=== PATIENT | female | born 1940 | race Caucasian/White ===

== ENCOUNTER 2018-04-18 05:16 | Inpatient (IN) ==
[2018-04-18] MEDS ORDERED: Dexamethasone Inj 20 MG/5 ML Vial IV.PUSH PRN (05:57)
[2018-04-18] MEDS ORDERED: ceFAZolin 2 GM Premix Inj 2 GM/100 ML BAG IV.SIG PRN (05:59)
[2018-04-18] MEDS ORDERED: Chlorhexidine Gluconate 2% 1 Pack (2 Cloths) TOPICAL SCH (06:00)
[2018-04-18] MEDS ORDERED: Sodium Chlor 0.9% Inj 500 ML IV.SIG SCH (06:00)
[2018-04-18] MEDS ORDERED: Metoprolol Tartrate 25 MG Tablet PO SCH (06:00)
[2018-04-18] MEDS ORDERED: Tranexamic Acid Inj 790 MG in Sodium Chlor 0.9% Inj 100 ML IV.SIG SCH ×2 (06:00→10:00)
[2018-04-18] MEDS ORDERED: Sodium Chlor 0.9% Inj 40 ML, Bupivacaine Liposo PF 1.3% Inj 20 ML P-ARTICULR SCH ×2 (06:15)
[2018-04-18] MEDS ORDERED: Chlorhexidine 4% Topical 120 APPLIC/120 ML Bottle TOPICAL SCH (06:15)
[2018-04-18] MEDS ORDERED: fentaNYL Citrate Inj 100 MCG/2 ML Ampul ONE ×2 (06:19→08:22)
[2018-04-18] MEDS ORDERED: Famotidine PF Inj 20 MG/2 ML Vial ONE (06:20)
[2018-04-18] MEDS ORDERED: fentaNYL Citrate Inj 250 MCG/5 ML Ampul ONE (06:20)
[2018-04-18] MEDS ORDERED: Ketamine Inj 50 MG/5 ML Syringe IV.PUSH ONE (06:41)
[2018-04-18] MEDS ORDERED: Vancomycin Inj 1,000 MG in Sodium Chlor 0.9% Inj 250 ML IV.SIG SCH (07:00)
[2018-04-18] MEDS ORDERED: Post-op Orders (for Pharmacy) OTHER STA (08:30)
[2018-04-18] MEDS ORDERED: Bisacodyl 10 MG Supp RECTAL PRN (08:30)
[2018-04-18] MEDS ORDERED: Aluminum/Magnesium/Simethacone Susp 30 ML UDC PO PRN (08:30)
--- NOTE | 2018-04-18 08:33 | P.OP ---
- Preoperative Diagnosis (1) Osteoarthritis of left hip - Postoperative Diagnosis (1) Osteoarthritis of left hip Date of procedure: 04/18/18 Procedure: Left total hip arthroplasty Anesthesia: GETA Surgeon: Fernando De La Paz MD [employer] Fabricator: TRUMAN Uribe The surgical procedure was assisted by my Advanced Registered Nurse Practitioner. My LAB ANIMAL TECHNOLOGIST presence was necessary throughout this case for the manipulation and positioning of the surgical extremity. My LAB ANIMAL TECHNOLOGIST was assisting me throughout the duration of this procedure. The skill set of an Advance Registered Nurse Practitioner was medically necessary to complete this procedure. During the surgical case, the rn surgical was working at the back table and the Advance Registered Nurse Practitioner was directly assisting me. Operation and Findings: IMPLANT DESCRIPTION: 1. [place] Gription Cup, acetabular size 50. 2. [place] AltrX polyethylene, neutral. 4. [place] femoral stem size 12, no collar, standard offset. 5. Femoral head/neck metal, 32, +1. ESTIMATED BLOOD LOSS: 600 cc. JUSTIFICATION FOR PROCEDURE: The patient has end-stage osteoarthritis to the hip. There is an attached conservative measures pathway form in the chart that describes the nonoperative measures that were undertaken prior to consideration of surgical management. The patient understood the risks and benefits of surgical management. See my office notes for further details. PROCEDURE: The patient was brought back to the operative theatre. Adequate anesthesia was obtained. The patient received intravenous vancomycin and Ancef. The patient was carefully placed on the operative table. The lower extremity was prepped and draped in the usual sterile fashion. Fluoroscopic images were obtained. We made a standard anterior incision over the hip. We dissected through the TFL fascia, exposing the anterior capsule. Arthrotomy was performed in a T-shaped fashion. The capsule was tagged with a #2 FiberWire. End-stage arthritis was identified. Osteotomy was performed through the femoral neck exposing the acetabulum. Remnants of the labrum were resected and osteophytes were removed. We sequentially reamed the acetabulum. We trialed the hip and placed the final cup into position. This was done under fluoroscopic guidance to obtain the appropriate inclination and anteversion. A manhole cover was placed into the acetabular component. We then placed the final polyethylene into position and confirmed that it was well seated. Capsular attachments on the calcar and the inner aspect of the greater trochanter were resected. On the proximal aspect of the femur we used a rongeur , box osteotome, canal finder, sequential broaches and lateralizing rasp. We calcar planed the proximal femur. Then thoroughly irrigated the wound. We trialed the hip with the appropriate size stem. We placed the final stem in to position and trialed again. The hip was stable while it was externally rotated 70 degrees when the leg was lowered to the floor. The final head was applied, and final fluoroscopic images were obtained. The wound was thoroughly irrigated again. Interarticular injection of liposomal bupivacaine was given. The capsule was closed with #2 FiberWire and #1 Vicryl. The deep fascia was closed with a #2 Stratafix, followed by 2-0 Vicryl in the skin and Dermabond dressing. Postop plan is to weight-bear as tolerated. DVT prophylaxis will be performed with SCDs, EDENILSON mcelroy, early mobilization, and Lovenox followed by aspirin.
[2018-04-18] MEDS ORDERED: Morphine Sulfate Inj 2 MG/ML Vial IV.PUSH PRN (09:00)
[2018-04-18] MEDS ORDERED: ALPRAZolam 0.25 MG Tablet PO PRN (09:00)
--- NOTE | 2018-04-18 09:08 | XR ---
EXAM DATE: 04/18/2018 8:39 AM EDT AGE/SEX: 77 years / Female INDICATIONS: Left total hip arthroplasty. CLINICAL DATA: This is the patient's initial encounter. Patient reports that signs and symptoms have been present for 1 day and indicates a pain score of Nonresponsive. MEDICAL/SURGICAL HISTORY: Non-responsive. Non-responsive. COMPARISON: No prior exams available for comparison. FINDINGS: 2 spot intraoperative fluoroscopic views of the left hip demonstrate a total hip arthroplasty. Femora l and acetabular components appear well seated. CONCLUSION: Left total hip arthroplasty. Electronically signed by: Ken Hawthorne MD 04/18/2018 9:07 AM EDT
[2018-04-18] MEDS ORDERED: Morphine Inj 4 MG/ML Vial ONE (09:09)
[2018-04-18] MEDS: Sod Chloride 0.9% Inj 1,000 ML IV.CONT SCH ×2 (09:12→20:51)
[2018-04-18] MEDS ORDERED: *morphine SULFATE 4 MG/ML PERIprocedure ONLY ONE (09:54)
--- NOTE | 2018-04-18 10:05 | XR ---
EXAM DATE: 04/18/2018 10:01 AM EDT AGE/SEX: 77 years / Female INDICATIONS: Post op left hip. CLINICAL DATA: This is the patient's initial encounter. Patient reports that signs and symptoms have been present for 1 day and indicates a pain score of 3/10. MEDICAL/SURGICAL HISTORY: None. None. COMPARISON: [facility] INJECTION- HIP, LEFT, 11/25/2016. . FINDINGS: Left total hip arthroplasty is noted. Femoral and acetabular components appear well seated. No fractu re or dislocation. CONCLUSION: Status post left total hip arthroplasty. Electronically signed by: Ken Hawthorne MD 04/18/2018 10:04 AM EDT
[2018-04-18] MEDS ORDERED: *Meperidine Inj 25 MG/ML Vial PERIprocedural Use ONLY ONE (10:15)
[2018-04-18] MEDS: Timolol 0.5% Drops 5 ML Bottle EACH EYE SCH (13:03)
[2018-04-18] MEDS: Levothyroxine 88 MCG Tablet PO SCH (13:04)
[2018-04-18] MEDS: Senna/Docusate Sodium 8.6/50 MG Tablet PO SCH ×2 (13:04→20:50)
[2018-04-18] MEDS: Multivitamin/Minerals Therapeutic Tablet PO SCH ×2 (13:04→20:50)
[2018-04-18] MEDS: Lisinopril 10 MG Tablet PO SCH (13:04)
--- NOTE | 2018-04-18 15:39 | P.DCO ---
- Physical Therapy Physical Therapy: Gait training, Transfer training, bed to chair Hip: Total hip Left Lower Extremity Weight Bearing: Weight bearing as tolerated Left Lower Extremity Range of Motion: Active ROM - Nursing Nursing: Madhavi broderick Dressing changes: Do not change dressing Additional instructions: First dressing change in the office - Certification Need for Home Health services: I have seen patient Michelle Mcdaniel on 04/18/18. My clinical findings support the need for the requested home health care services because: Need for Home Health Services: Limited ability to care for self, High risk of falls Homebound Certification: I certify that my clinical findings support that this patient is homebound because: Homebound Certification: Post-op weakness, Unsteady gait/balance
[2018-04-18] MEDS ORDERED: Phenylephrine/NS 1000 MCG/10ML Syringe IV.PUSH ONE (18:06)
[2018-04-18] MEDS ORDERED: Neostigmine Inj 5 MG/5 ML Syringe IV.PUSH ONE (18:06)
[2018-04-18] MEDS ORDERED: Lidocaine PF 1% Inj 5 ML Syringe INFILTRATN ONE (18:06)
[2018-04-18] MEDS ORDERED: Glycopyrrolate Inj 1 MG/5 ML Syringe IV.PUSH ONE (18:06)
[2018-04-18] MEDS: Temazepam 15 MG Capsule PO SCH (20:50)
[2018-04-19] MEDS: Levothyroxine 88 MCG Tablet PO SCH (05:52)
--- NOTE | 2018-04-19 07:07 | P.PNOP ---
Subjective Interval history: The patient is resting in bed with complaints of moderate discomfort to the left hip. Physical Exam Vital signs: Vital Signs 04/18/18 08:51 04/18/18 08:55 04/18/18 09:00 Temperature 97.7 F Pulse Rate 101 H 93 H Respiratory Rate 14 21 Blood Pressure 133/69 117/63 Pulse Oximetry 98 98 98 04/18/18 09:15 04/18/18 09:30 04/18/18 09:45 Temperature Pulse Rate 76 60 64 Respiratory Rate 20 14 14 Blood Pressure 91/50 L 74/46 L 103/55 L Pulse Oximetry 98 95 94 L 04/18/18 09:55 04/18/18 10:00 04/18/18 10:15 Temperature Pulse Rate 61 62 Respiratory Rate 12 12 12 Blood Pressure 111/59 L 94/53 L Pulse Oximetry 94 L 97 04/18/18 10:30 04/18/18 10:42 04/18/18 11:00 Temperature Pulse Rate 86 79 Respiratory Rate 15 18 Blood Pressure 99/61 L 107/66 Pulse Oximetry 97 98 99 04/18/18 11:30 04/18/18 12:00 04/18/18 12:30 Temperature Pulse Rate 87 87 100 H Respiratory Rate 12 11 L 15 Blood Pressure 104/59 L 107/53 L 106/57 L Pulse Oximetry 95 93 L 98 04/18/18 13:00 04/18/18 15:06 04/18/18 20:00 Temperature 98 F 97.3 F L 97.8 F Pulse Rate 87 101 H 81 Respiratory Rate 17 18 17 Blood Pressure 105/62 124/65 120/58 L Pulse Oximetry 95 98 96 04/19/18 00:00 04/19/18 04:00 Temperature 97.7 F 98.3 F Pulse Rate 85 74 Respiratory Rate 17 17 Blood Pressure 92/53 L 125/50 L Pulse Oximetry 98 95 Intake & Output 04/18/18 04/19/18 04/19/18 18:59 06:59 18:59 Intake Total 2279.9 / 2279.9 1200 / 1200 Output Total 600 / 600 Balance 1679.9 / 1679.9 1200 / 1200 Weight 79 kg Intake: IV 1557.9 / 1557.9 1200 / 1200 NS Inj 1,000 ML @ 80 mls/hr IV. 1000 / 1000 CONT .[id number] DUANE Rx#:[id number] LR 1000 mL Inj 1,000 ML @ 30 1000 / 1000 mls/hr IV.SIG .Q24H DUANE Rx#: [id number] Cyklokapron Inj 790 MG In NS 107.9 / 107.9 Inj 100 ML @ 200 mls/hr IV.SIG ONCE DUANE Rx#:[id number] Vancomycin Inj 1,000 MG In NS 250 / 250 Inj 250 ML @ 250 mls/hr IV.SIG GARMENT LINER DUANE Rx#:[id number] Ancef 2 GM Premix Inj 2 gm In 100 / 100 100 ml @ 200 mls/hr IV.SIG GARMENT LINER PRN Rx#:[id number] Ancef Inj 1,000 MG In NS Inj 100 / 100 200 / 200 100 ML @ 200 mls/hr IV.SIG Q6H DUANE Rx#:[id number] Oral 480 / 480 Anesthesia Amount 242 / 242 Output: Urine 0 / 0 Estimated Blood Loss 600 / 600 Other: # Voids 4 Date of Last Bowel Movement 04/16/18 04/16/18 Narrative: The patient's dressing is clean, dry, and intact. EHL/TA/G are intact. 2+ pedal pulse. The patient's calf is soft and nontender. Sensation is intact to light touch distally. Results - Imaging Impressions Hip X-Ray 04/18/18 00:00 CONCLUSION: Left total hip arthroplasty. Hip X-Ray 04/18/18 08:31 CONCLUSION: Status post left total hip arthroplasty. - Procedures Left total hip arthroplasty Assessment and Plan - Problem List (1) Status post total hip replacement, left Code(s): Z96.642 - Presence of left artificial hip joint Status: Acute (2) Osteoarthritis of left hip Code(s): M16.12 - Unilateral primary osteoarthritis, left hip Status: Acute - Assessment and Plan POD #1: Left total hip arthroplasty 1. Weightbearing as tolerated on left lower extremity. 2. Lovenox followed by aspirin for DVT prophylaxis. 3. Ice as needed for swelling. 4. Stable per ortho for discharge to home health or Monday. 5. The patient will follow up with Dr. De La Paz and/or TRUMAN Chaparro as previously scheduled.
[2018-04-19] MEDS ORDERED: Dexamethasone Inj 20 MG/5 ML Vial IV.PUSH ONE (08:00)
[2018-04-19 08:37] LABS: Hemoglobin 11.3 gm/dL (11.6-15.3)
[2018-04-19] MEDS: Senna/Docusate Sodium 8.6/50 MG Tablet PO SCH ×2 (08:44→21:38)
[2018-04-19] MEDS: Lisinopril 10 MG Tablet PO SCH (08:44)
[2018-04-19] MEDS: Multivitamin/Minerals Therapeutic Tablet PO SCH ×2 (08:45→21:38)
[2018-04-19] MEDS: Enoxaparin Inj 40 MG/0.4 ML Syringe SQ SCH (08:47)
[2018-04-19] MEDS: Sod Chloride 0.9% Inj 1,000 ML IV.CONT SCH (10:22)
[2018-04-19] MEDS: Timolol 0.5% Drops 5 ML Bottle EACH EYE SCH (10:22)
[2018-04-19] MEDS: Temazepam 15 MG Capsule PO SCH (21:39)
[2018-04-20] MEDS: Sod Chloride 0.9% Inj 1,000 ML IV.CONT SCH ×2 (00:27→10:30)
[2018-04-20] MEDS: Levothyroxine 88 MCG Tablet PO SCH (06:18)
[2018-04-20] MEDS: Enoxaparin Inj 40 MG/0.4 ML Syringe SQ SCH (08:25)
[2018-04-20] MEDS: Timolol 0.5% Drops 5 ML Bottle EACH EYE SCH (08:25)
[2018-04-20] MEDS: Lisinopril 10 MG Tablet PO SCH (08:25)
[2018-04-20] MEDS: Senna/Docusate Sodium 8.6/50 MG Tablet PO SCH (08:25)
[2018-04-20] MEDS: Multivitamin/Minerals Therapeutic Tablet PO SCH (08:26)
--- NOTE | 2018-04-20 09:03 | P.PNOP ---
Subjective Interval history: doing well. want to go home Physical Exam Vital signs: Vital Signs 04/19/18 12:00 04/19/18 16:00 04/19/18 19:00 Temperature 99.1 F 99.2 F Pulse Rate 111 H 96 H Respiratory Rate 17 18 18 Blood Pressure 119/59 L 105/59 L Pulse Oximetry 94 L 95 04/19/18 22:00 04/19/18 22:08 04/20/18 00:00 Temperature 99.4 F 99.0 F Pulse Rate 97 H 101 H Respiratory Rate 17 18 17 Blood Pressure 120/58 L 108/55 L Pulse Oximetry 94 L 95 04/20/18 01:35 04/20/18 04:00 04/20/18 07:55 Temperature 100.0 F H Pulse Rate 105 H Respiratory Rate 18 17 17 Blood Pressure 117/58 L Pulse Oximetry 96 Intake & Output 04/19/18 04/20/18 04/20/18 18:59 06:59 18:59 Intake Total 1000 / 1000 Balance 1000 / 1000 Intake: Oral 1000 / 1000 Other: # Voids 5 4 Date of Last Bowel Movement 04/16/18 04/16/18 04/16/18 Narrative: The patient's dressing is clean, dry, and intact. EHL/TA/G are intact. 2+ pedal pulse. The patient's calf is soft and nontender. Sensation is intact to light touch distally. no change from yesterday Results - Labs CBC & Chem 7: 04/19/18 07:47 - Procedures Left total hip arthroplasty Assessment and Plan - Problem List (1) Status post total hip replacement, left Code(s): Z96.642 - Presence of left artificial hip joint Status: Acute (2) Osteoarthritis of left hip Code(s): M16.12 - Unilateral primary osteoarthritis, left hip Status: Acute - Assessment and Plan POD #2: Left total hip arthroplasty 1. Weightbearing as tolerated on left lower extremity. 2. Lovenox followed by aspirin for DVT prophylaxis. (patient has Rx at home for blood thinners and pain meds) 3. Ice as needed for swelling. 4. Stable per ortho for discharge to home health today. 5. The patient will follow up with Dr. De La Paz and/or TRUMAN Chaparro as previously scheduled.
--- NOTE | 2018-04-23 12:30 | P.DS ---
Date of admission: 04/18/18 05:16 Primary care physician: Joel Yanez Attending physician on discharge: Fernando De La Paz Anticipated date of discharge: 04/20/18 Brief History from admission: The patient was admitted to the hospital for severe left hip osteoarthritis to have a left RAY. DS: Diagnosis - Discharge Diagnosis (1) Status post total hip replacement, left Status: Acute (2) Osteoarthritis of left hip Status: Acute DS: Summary Hospital Course: The patient was admitted to the hospital for severe osteoarthritis of the left hip to have a left total hip arthroplasty. The patient's surgery went well with no complication. The patient is on a diabetic diet. The patient's DVT prophylaxis includes use of [Lovenox followed by aspirin]. The patient is weightbearing as tolerated. The patient was discharged [home with home health] and will follow up in the office with Dr. De La Paz and/or TRUMAN Chaparro as previously scheduled. - Time Spent with Patient Total time spent providing and/or coordinating discharge services: Greater than 30 minutes - Quality: VTE Deep Vein Thrombosis/Pulmonary Embolism Present on Admission: No Exam Narrative: See last progress note for physical exam Results Procedures completed during hospitalization: Left total hip arthroplasty - Impressions ITS Impressions Hip X-Ray 04/18/18 08:31 CONCLUSION: Status post left total hip arthroplasty. Discharge Plan - Discharge Disposition Patient Disposition: W/Home Health Service - Discharge Condition Condition: Stable - Discharge Order Discharge Orders: Discharge Order (Routine); Ordered 04/18/18 Ordered By: Jason Hinojosa - Discharge Details Anticipated Discharge Date: 04/19/18 - Physicians Team Primary Care Provider: Joel Yanez Attending Provider: Fernando De La Paz Other Providers: [facility] - Rxs /Orders / Referrals /Forms Prescriptions: Continue alprazolam 0.25 mg Tablet 0.25 mg PO BID PRN (Reason: Anxiety) calcium carbonate [Calcium 500] 500 mg calcium (1,250 mg) Tablet 500 mg PO DAILY cholecalciferol (vitamin D3) [Vitamin D3] 1,000 unit Capsule 1,000 unit PO DAILY Lacto.acidophilus-Bif.animalis [Daily Probiotic] 2.5 billion cell Capsule 1 cap PO DAILY levothyroxine 88 mcg Tablet 88 mcg PO DAILY lisinopril 10 mg Tablet 10 mg PO DAILY metformin 500 mg Tablet 500 mg PO DAILY sjtbxvyw-gmt-GX-lycopen-lutein [Centrum Silver] 0.4-300-250 mg-mcg-mcg Tablet 1 tab PO DAILY rosuvastatin 5 mg Tablet 5 mg PO DAILY temazepam 30 mg Capsule 30 mg PO HS timolol maleate 0.5 % Drops, Once Daily 1 drp OPHTHALMIC (EYE) DAILY Discontinued ibuprofen 200 mg Capsule 200 mg PO TID PRN (Reason: Pain) Ambulatory Orders / Order Sets / DME: Adjustable Commode 3-in-1 (1 each) (Routine) Location: Determined by Patient Ordered By: Jason Hinojosa Walker With Front Wheels (1 each) (Routine) Location: Determined by Patient Ordered By: Jason Hinojosa Referrals: Fernando De La Paz MD [Physician] - See Instructions ( Your appointment has been scheduled for Monday05/01/18 at 1:25 PM If you cannot make this appointment, please call the office to reschedule ) Joel Yanez D.O. [Primary Care Provider] - See Instructions - Discharge Instructions Patient Printed Instructions: Constipation (DC), How to Choose and Use a Walker (GEN), Pain Management After Surgery (DC), EDENILSON Hose (DC), Total Hip Replacement (DC) Additional Instructions: RX provided to patient by Dr. De La Paz prior to discharge. PLEASE TAKE ALL MEDICATIONS PRESCRIBED BY YOUR DOCTOR. PLEASE KEEP FOLLOW UP APPOINTMENT WITH YOUR SURGEON. IF YOU HAVE ANY QUESTIONS PLEASE CALL THE OFFICE TO RESCHEDULE. KEEP YOUR DRESSING CLEAN, DRY AND INTACT. IF YOU HAVE ANY SIGNS AND SYMPTOMS OF INFECTION, PLEASE CALL YOUR DOCTOR AND REPORT BACK TO [facility]. IT HAS BEEN OUR PLEASURE TO TAKE CARE OF YOU WHILE HERE ON 6N. WISHING YOU WELL ON YOUR RECOVERY. - Post Discharge Care Plan Care Plan Goals: Discharge Care Plan Goals for Total Hip Replacement You had a hip replacement surgery. This means your natural hip was replaced with an artificial joint (prosthesis). You may be recovering at home or in a rehabilitation facility. Either way, you must take care of your new hip. Here are some goals to help you heal well. Directions to Meet your Goals: 1. Activity & Exercises: * Take pain medicine as directed by your doctor. * Dont drive until your doctor says its OK. And never drive while taking opioid pain medicine. * Wear the support stockings you were given in the hospital as directed by your surgeon. * Dont sit for more than 30 to 45 minutes at one time. * Dont lean forward while sitting. * Dont cross your legs. * Keep your feet flat on the floor. Dont turn your foot or leg inward. This stresses your hip joint. * Use an elevated toilet seat for 6 weeks after surgery. * Nap if you are tired, but dont stay in bed all day. * Sit on a firm cushion when you ride in a car and avoid sitting too low. Try not to bend your hip too much when getting in and out of the car. 2. Prevent Falls/Injury: * Follow your doctors orders regarding how much weight to put on the affected leg. * Dont bend at the hip when you bend over. Don't bend at the waist to put on socks and shoes. And avoid picking up items from the floor. * Use a cane, crutches, a walker, or handrails until your balance, flexibility, and strength improve. And remember to ask for help from others when you need it. * Free up your hands so that you can use them to keep balance. Use a odalys pack , apron, or pockets to carry things. * Arrange your household to keep the items you need handy. Keep everything else out of the way. * Remove items that may cause you to fall, such as throw rugs and electrical cords. * Use nonslip bath mats, grab bars, an elevated toilet seat, and a shower chair in your bathroom * Sit on a shower stool or chair when you shower to keep from falling. 3. Precautions: * Prevent infection. Any infection will need to be treated immediately. Call your doctor right away if you think you might have an infection. * Tell your dentist that you have an artificial joint and take antibiotics as prescribed before any dental work. * Tell all your healthcare providers about your artificial joint before any medical procedure. * Maintain a healthy weight. Get help to lose any extra pounds. Added body weight puts stress on the joints. 4. Incision Care: * Prevent infection by washing your hands often. If an infection occurs, it will need to be treated right away. * Call your doctor right away if you think you may have an infection. Symptoms include a fever or an incision that leaks white, green, or yellow fluid. * Don't soak your incision in water until your doctor says its OK. This means no hot tubs, bathtubs, or swimming pools. * Follow your doctor's instructions for changing the dressing. * Dont rub the incision, or apply creams or lotions to it. * If you notice any redness or drainage around the bandage site, contact your surgeon's office immediately. 5. Follow-Up: Do Not miss your follow-up appointment. Keep up with all your appointments and yearly check ups When to call your doctor: Call your doctor right away if you have: Hip pain gets worse Pain or swelling in your calf or leg not related to your incision Tenderness or redness in your calf Fever of 100.4F (38C) or higher, or as directed by your healthcare provider Shaking chills Swelling or redness at the incision site gets worse Fluid draining from the incision Call 911: Call 911 right away if you have: Chest pain Shortness of breath Any pain or tenderness in your calf Your Health Problems: Goals to Promote Your Health: * To prevent worsening of your condition * To maintain your health at the optimal level Directions to Meet Your Goals: * Take your medications as prescribed * Follow your dietary instruction * Follow activity as directed * Keep your appointments as scheduled * Take your immunizations and boosters as scheduled * If your symptoms worsen call your PCP * If no PCP go to Urgent Care or Emergency Room Smoking is dangerous to your health. Avoid second hand smoke. You may reach the 24-hour crisis hotline for domestic abuse at .
== END 2018-04-20 18:07 | disposition home health service (06) ==
LOC: HSDI 05:16 → UNDODISIN 12:04 → N06 13:32
PROVIDERS: ADMIT Orthopaedic Surgery; ATTEND Orthopaedic Surgery